=== PATIENT | female | born 2000 | race American Indian/Alaskan Native ===

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

== ENCOUNTER 2021-06-02 18:13 | Emergency (ER) | payer MEDICAID ==
[2021-06-02] MEDS ORDERED: predniSONE 20 MG TAB PO ONE (20:02)
[2021-06-02] MEDS ORDERED: KETOROLAC 60 MG/2 ML INJ IM ONE (20:02)
[2021-06-02 20:13] VITALS: BP 122/74
[2021-06-02 20:27] LABS: Bilirubin,Urine NEG (Negative); Blood,Urine NEG (Negative); Color,Urine Yellow (Yellow); Mucus,Urine FEW /HPF; Protein,Urine <15 mg/dL mg/dL (Negative); RBC,Urine < 1.0 /HPF (0.0-6.0); Urobilinogen,Urine < 2.0 mg/dL (<2.0); WBC,Urine < 1.0 /HPF (0.0-6.0)
[2021-06-02 20:27] LABS: Basophils % (Auto) 0.3 % (0.0-1.8); Eosinophils # (Auto) 0.1 K/mm3 (0.0-0.4); Eosinophils % (Auto) 1.4 % (0.0-4.3); Hematocrit 40.4 % (30.3-42.9); Hemoglobin 13.5 gm/dl (10.1-14.3); Lymphocytes # (Auto) 1.7 K/mm3 (1.2-5.4); Lymphocytes % (Auto) 27.2 % (13.4-35.0); Mean Corpuscular HGB Conc 34 % (30-34); Mean Corpuscular Volume 89 fl (79-97); Monocytes # (Auto) 0.5 K/mm3 (0.0-0.8); Monocytes % (Auto) 7.7 % (0.0-7.3); Platelet Count 403 K/mm3 (140-440); Red Blood Count 4.55 M/mm3 (3.65-5.03); Red Cell Distribution Width 13.3 % (13.2-15.2)
[2021-06-02 20:33] LABS: HCG Qualitative,Urine Negative (Negative)
[2021-06-02 20:51] LABS: Alanine Aminotransferase 18 units/L (7-56); Albumin 4.4 g/dL (3.9-5); Blood Urea Nitrogen 6 mg/dL (7-17); Calcium 9.5 mg/dL (8.4-10.2); Hemolysis Index 3
[2021-06-02 21:02] LABS: BUN/Creatinine Ratio 12
--- NOTE | 2021-06-02 21:21 | Emergency Department Report ---
ED Back Pain/Injury HPI - General Chief Complaint: Back Pain/Injury Stated Complaint: LOWER BACK PAIN Time Seen by Provider: 06/02/21 20:01 Source: patient Limitations: No Limitations - History of Present Illness Initial Comments: This is a 20-year-old female nontoxic, well nourished in appearance, no acute signs of distress presents to the ED with c/o of acute on chronic lower back pain. Patient stated today she also had 2 episodes of vomiting due to pain. Currently patient denies any vomiting. Patient stated that the past several days she was heavy lifting and developed pain. Patient denies any radiation of pain. Patient denies any trauma or injuries. Denies any bladder or bowel instability. Patient denies any urinary symptoms. Denies any fever, chills, nausea, vomiting, headache, stiff neck, chest pain or shortness of breath. Patient denies any numbness or tingling. Patient stated allergies to risperidone. MD Complaint: back pain -: days(s) Similar Symptoms Previously: Yes Place: home Radiation: none Severity: mild Severity scale (0 -10): 3 Quality: aching Consistency: intermittent Improves With: immobilization, sitting upright Worsens With: movement, walking Context: while lifting, turning/twisting Associated Symptoms: denies other symptoms, nausea/vomiting. denies: confusion, weakness, chest pain, numbness, difficulty walking, cough, difficulty urinating, diaphoresis, incontinence, fever/chills, constipation, headaches, abdominal pain, malaise, rash, seizure, shortness of breath, syncope - Related Data Previous Rx's Medication Instructions Recorded Last Taken Type DOXYCYCLINE Hyclate [Vibramycin 100 mg PO Q12HR #14 capsule 01/20/17 Unknown Rx CAP] Cyclobenzaprine [Flexeril] 10 mg PO QHS PRN #10 tablet 06/02/21 Unknown Rx Naproxen 500 mg PO Q12H PRN #12 tablet 06/02/21 Unknown Rx Allergies Allergy/AdvReac Type Severity Reaction Status Date / Time risperidone [From Risperdal] Allergy Unknown Verified 08/15/19 07:37 ED Review of Systems ROS: Stated complaint: LOWER BACK PAIN Other details as noted in HPI Comment: All other systems reviewed and negative Constitutional: denies: chills, fever Eyes: denies: eye pain, eye discharge, vision change ENT: denies: ear pain, throat pain Respiratory: denies: cough, shortness of breath, wheezing Cardiovascular: denies: chest pain, palpitations Endocrine: no symptoms reported Gastrointestinal: nausea, vomiting. denies: abdominal pain, diarrhea, constipation, hematemesis, melena, hematochezia Genitourinary: denies: urgency, dysuria, discharge Musculoskeletal: back pain. denies: joint swelling, arthralgia Skin: denies: rash, lesions Neurological: denies: headache, weakness, paresthesias Psychiatric: denies: anxiety, depression Hematological/Lymphatic: denies: easy bleeding, easy bruising ED Past Medical Hx - Past Medical History Hx Psychiatric Treatment: Yes Hx Asthma: Yes Additional medical history: Bipolar, ADD, PTSD - Surgical History Past Surgical History?: No - Social History Smoking Status: Never Smoker Substance Use Type: None - Medications Home Medications: Home Medications Medication Instructions Recorded Confirmed Last Taken Type DOXYCYCLINE Hyclate [Vibramycin 100 mg PO Q12HR #14 capsule 01/20/17 Unknown Rx CAP] Cyclobenzaprine [Flexeril] 10 mg PO QHS PRN #10 tablet 06/02/21 Unknown Rx Naproxen 500 mg PO Q12H PRN #12 tablet 06/02/21 Unknown Rx ED Physical Exam - General Limitations: No Limitations General appearance: alert, in no apparent distress - Head Head exam: Present: atraumatic, normocephalic - Eye Eye exam: Present: normal appearance - ENT ENT exam: Present: normal exam, normal orophraynx - Neck Neck exam: Present: normal inspection, full ROM. Absent: lymphadenopathy - Respiratory Respiratory exam: Present: normal lung sounds bilaterally. Absent: respiratory distress, wheezes, rales, rhonchi, stridor, chest wall tenderness, accessory muscle use, decreased breath sounds, prolonged expiratory - Cardiovascular Cardiovascular Exam: Present: regular rate, normal rhythm, normal heart sounds. Absent: bradycardia, tachycardia, irregular rhythm, systolic murmur, diastolic murmur, rubs, gallop - GI/Abdominal GI/Abdominal exam: Present: soft, normal bowel sounds. Absent: distended, tenderness, guarding, rebound, rigid, diminished bowel sounds - Extremities Exam Extremities exam: Present: normal inspection, full ROM, normal capillary refill. Absent: tenderness - Back Exam Back exam: Present: normal inspection, full ROM, paraspinal tenderness (Lumbar paraspinal). Absent: tenderness, CVA tenderness (R), CVA tenderness (L), muscle spasm, vertebral tenderness, rash noted - Expanded Back Exam Expanded Back exam: Absent: saddle anesthesia Back exam: Negative Straight Leg Raising: Left, Right - Neurological Exam Neurological exam: Present: alert, oriented X3, normal gait - Psychiatric Psychiatric exam: Present: normal affect, normal mood - Skin Skin exam: Present: warm, dry, intact, normal color. Absent: rash ED Course Vital Signs 06/02/21 06/02/21 20:12 21:36 Temperature 98.6 F Pulse Rate 78 Respiratory 16 Rate Blood Pressure 122/74 [Left] O2 Sat by Pulse 100 Oximetry - Reevaluation(s) Reevaluation #1: 06/02/21 21:20 Patient is speaking in full sentences with no signs of distress noted. ED Medical Decision Making - Lab Data Result diagrams: 06/02/21 20:11 06/02/21 20:11 Lab Results 06/02/21 06/02/21 06/02/21 Range/Units 20:07 20:11 20:11 WBC 6.3 (4.5-11.0) K/mm3 RBC 4.55 (3.65-5.03) M/mm3 Hgb 13.5 (10.1-14.3) gm/dl Hct 40.4 (30.3-42.9) % MCV 89 (79-97) fl MCH 30 (28-32) pg MCHC 34 (30-34) % RDW 13.3 (13.2-15.2) % Plt Count 403 (140-440) K/mm3 Lymph % (Auto) 27.2 (13.4-35.0) % [place] % (Auto) 7.7 H (0.0-7.3) % Eos % (Auto) 1.4 (0.0-4.3) % Baso % (Auto) 0.3 (0.0-1.8) % Lymph # (Auto) 1.7 (1.2-5.4) K/mm3 [place] # (Auto) 0.5 (0.0-0.8) K/mm3 Eos # (Auto) 0.1 (0.0-0.4) K/mm3 Baso # (Auto) 0.0 (0.0-0.1) K/mm3 Seg Neutrophils % 63.4 (40.0-70.0) % Seg Neutrophils # 4.0 (1.8-7.7) K/mm3 Sodium 140 (137-145) mmol/L Potassium 4.0 (3.6-5.0) mmol/L Chloride 105.5 (98-107) mmol/L Carbon Dioxide 23 (22-30) mmol/L Anion Gap 16 mmol/L BUN 6 L (7-17) mg/dL Creatinine 0.5 L (0.6-1.2) mg/dL Estimated GFR > 60 ml/min BUN/Creatinine Ratio 12 % Glucose 84 (65-100) mg/dL Calcium 9.5 (8.4-10.2) mg/dL Total Bilirubin 0.40 (0.1-1.2) mg/dL AST 17 (5-40) units/L ALT 18 (7-56) units/L Alkaline Phosphatase 68 (35-129) units/L Total Protein 7.7 (6.3-8.2) g/dL Albumin 4.4 (3.9-5) g/dL Albumin/Globulin Ratio 1.3 % Lipase 30 (13-60) units/L Urine Color Yellow (Yellow) Urine Turbidity Clear (Clear) Urine pH 6.0 (5.0-7.0) Ur Specific [place] 1.017 (1.003-1.030) Urine Protein <15 mg/dl (Negative) mg/dL Urine Glucose (UA) Neg (Negative) mg/dL Urine Ketones Neg (Negative) mg/dL Urine Blood Neg (Negative) Urine Nitrite Neg (Negative) Urine Bilirubin Neg (Negative) Urine Urobilinogen < 2.0 (<2.0) mg/dL Ur Leukocyte Esterase Neg (Negative) Urine WBC (Auto) < 1.0 (0.0-6.0) /HPF Urine RBC (Auto) < 1.0 (0.0-6.0) /HPF U Epithel Cells (Auto) 2.0 (0-13.0) /HPF Urine Mucus Few /HPF Urine HCG, Qual Negative (Negative) - Medical Decision Making This is a 20-year-old female that presents with low back strain. Patient is stable was examined by me. There is no spinal tenderness. There is no cauda equina syndrome during examination. No bladder or bowel instability. Patient received Toradol 60 mg IM and prednisone in the ED by Lucio Waggoner RN which stated that her symptoms has resolved and subsided. Patient is discharged with muscle relaxant and naproxen. Patient was instructed not to operate any machinery while taking muscle relaxant as they cause her drowsiness. Patient was referred to Follow-up with a primary care doctor in 3-5 days or if symptoms worsen and continue return to emergency room as soon as possible. At time of discharge, the patient does not seem toxic or ill in appearance. No acute signs of distress noted. Patient agrees to discharge treatment plan of care. No further questions noted by the patient. This chart is dictated with using [employer] Critical care attestation.: If time is entered above; I have spent that time in minutes in the direct care of this critically ill patient, excluding procedure time. ED Disposition Clinical Impression: Low back strain Qualifiers: Encounter type: initial encounter Qualified Code(s): S39.012A - Strain of muscle, fascia and tendon of lower back, initial encounter Disposition: TO HOME OR SELFCARE Is pt being admited?: No Does the pt Need Aspirin: No Condition: Stable Instructions: Cyclobenzaprine tablets, Lumbosacral Strain Additional Instructions: Follow-up with your primary care doctor in 3-5 days or if symptoms worsen such as bladder or bowel stability, chest pain, short of breath, numbness or tingling sensation in extremities, headache, dizziness, visual changes, nausea vomiting, or abdominal pain, return back to emergency room as was possible. Take naproxen and Flexeril as prescribed. Do not operate heavy machinery while taking Flexeril due to sedation Prescriptions: Cyclobenzaprine [Flexeril] 10 mg PO QHS PRN #10 tablet PRN Reason: Muscle Spasm Naproxen 500 mg PO Q12H PRN #12 tablet PRN Reason: Pain , Severe (7-10) Referrals: PRIMARY CAREMD [Referring] - 3-5 Days MIKI MITCHELL MD [Staff Physician] - 3-5 Days Time of Disposition: 21:23
== END 2021-06-02 21:30 | disposition home or self-care (01) ==
LOC: ED 18:13
DX: S39.012A Strain of muscle, fascia and tendon of lower back, initial encounter (principal); F31.9 Bipolar disorder, unspecified; J45.909 Unspecified asthma, uncomplicated; Z79.899 Other long term (current) drug therapy; Z88.8 Allergy status to other drugs, medicaments and biological substances; X50.0XXA Overexertion from strenuous movement or load, initial encounter; Y93.89 Activity, other specified; Y92.099 Unspecified place in other non-institutional residence as the place of occurrence of the external cause; Y99.8 Other external cause status
CPT/HCPCS: 36415; 80053; 81001; 81025; 83690; 85025; 99283; J1885; J7512

== ENCOUNTER 2022-03-23 20:48 | Emergency (ER) | payer MEDICAID ==
[2022-03-23 22:31] VITALS: BP 141/84
[2022-03-24] MEDS ORDERED: IBUPROFEN 600 MG TAB PO ONE ×2 (03:55→06:40)
[2022-03-24] MEDS ORDERED: HYDROcodone/ACETAMINOPHEN 7.5-325MG TAB PO ONE ×2 (03:55→06:40)
[2022-03-24] MEDS ORDERED: ONDANSETRON 4 MG ODT TAB PO ONE ×2 (03:55→06:40)
--- NOTE | 2022-03-24 04:24 | XRay Report ---
LEFT KNEE 4 VIEW(S) INDICATION / CLINICAL INFORMATION: PAIN COMPARISON: None available. FINDINGS: BONES / JOINT(S): No acute fracture or subluxation. No significant arthritis. Moderate joint effusion . SOFT TISSUES: No significant abnormality. ADDITIONAL FINDINGS: None. Signer Name: Bernabe Boss DO Signed: 03/24/2022 4:20 AM Workstation Name: [id number]
--- NOTE | 2022-03-24 04:56 | Emergency Department Report ---
ED Extremity Problem HPI - General Chief complaint: Extremity Injury, Lower Stated complaint: RIGHT KNEE PAIN Source: patient Mode of arrival: Ambulatory Limitations: No Limitations - History of Present Illness Initial comments: Patient is a 21-year-old -[place] female with no past medical history presents to the ED with complaint of acute onset persistent left knee pain and swelling for the last 3 months after a fall injury. Patient states that she was horse playing with her when she twisted her left knee and fell down and afterwards she was initially evaluated at [facility] ER where she was evaluated and discharged home with follow-up to orthopedic surgeon which she never followed up with. Patient states that she was told during visit at [facility] that she had a torn ligament in the knee. Patient states that she did not go for surgery because she was scared of surgery and has been taking lxpe-kot-[id number] medication with no relief. Patient denies fall, nausea and vomiting, numbness and tingling or weakness of lower extremities bilaterally. MD Complaint: extremity pain (left knee pain), extremity swelling (left knee pain), joint swelling (Left knee pain and swelling), joint paint (Left knee is pain and) -: Sudden, month(s) (2) Location: left, lower extremity (Left knee pain and swelling), knee History of Same: Yes (Recent fall 2 months ago) -: Yes arthralgia (Left knee joint pain) Quality: sharp, constant Consistency: constant Improves with: nothing Worsens with: weight bearing, walking, exertion, palpation Associated Symptoms: denies other symptoms, arthralgias (Left knee pain and swelling). denies: chest pain, shortness of breath, fever, myalgias - Related Data Previous Rx's Medication Instructions Recorded Last Taken Type DOXYCYCLINE Hyclate [Vibramycin 100 mg PO Q12HR #14 capsule 01/20/17 Unknown Rx CAP] Cyclobenzaprine [Flexeril] 10 mg PO QHS PRN #10 tablet 06/02/21 Unknown Rx Naproxen 500 mg PO Q12H PRN #12 tablet 06/02/21 Unknown Rx Ibuprofen [Motrin] 800 mg PO Q8HR PRN #30 tablet 03/24/22 Unknown Rx Leg Brace [Knee Brace] 1 each MC ONCE #1 each 03/24/22 Unknown Rx predniSONE [Deltasone] 60 mg PO QDAY #15 tab 03/24/22 Unknown Rx Allergies Allergy/AdvReac Type Severity Reaction Status Date / Time risperidone [From Risperdal] Allergy Unknown Verified 08/15/19 07:37 ED Review of Systems ROS: Stated complaint: RIGHT KNEE PAIN Other details as noted in HPI Constitutional: denies: chills, fever Eyes: denies: eye pain, eye discharge, vision change ENT: denies: ear pain, throat pain Respiratory: denies: cough, shortness of breath, wheezing Cardiovascular: denies: chest pain, palpitations Endocrine: no symptoms reported Gastrointestinal: denies: abdominal pain, nausea, diarrhea Genitourinary: denies: urgency, dysuria, discharge Musculoskeletal: joint swelling, arthralgia (Left knee pain and swelling). denies: back pain Skin: denies: rash, lesions Neurological: denies: headache, weakness, paresthesias Psychiatric: denies: anxiety, depression Hematological/Lymphatic: denies: easy bleeding, easy bruising ED Past Medical Hx - Past Medical History Previous Medical History?: Yes Hx Psychiatric Treatment: Yes (ADHD, PTSD, bipolar disorder) Hx Asthma: Yes Additional medical history: Bipolar, ADD, PTSD. Chronic Right Knee pain - Surgical History Past Surgical History?: No - Social History Smoking Status: Current Every Day Smoker Substance Use Type: None - Medications Home Medications: Home Medications Medication Instructions Recorded Confirmed Last Taken Type DOXYCYCLINE Hyclate [Vibramycin 100 mg PO Q12HR #14 capsule 01/20/17 Unknown Rx CAP] Cyclobenzaprine [Flexeril] 10 mg PO QHS PRN #10 tablet 06/02/21 Unknown Rx Naproxen 500 mg PO Q12H PRN #12 tablet 06/02/21 Unknown Rx Ibuprofen [Motrin] 800 mg PO Q8HR PRN #30 tablet 03/24/22 Unknown Rx Leg Brace [Knee Brace] 1 each MC ONCE #1 each 03/24/22 Unknown Rx predniSONE [Deltasone] 60 mg PO QDAY #15 tab 03/24/22 Unknown Rx ED Physical Exam - General Limitations: No Limitations General appearance: alert, in no apparent distress - Head Head exam: Present: atraumatic, normocephalic, normal inspection - Eye Eye exam: Present: normal appearance, PERRL, EOMI Pupils: Present: normal accommodation - ENT ENT exam: Present: normal exam, normal orophraynx, mucous membranes moist, TM's normal bilaterally, normal external ear exam - Neck Neck exam: Present: normal inspection, full ROM. Absent: tenderness, mening ismus, lymphadenopathy - Respiratory Respiratory exam: Present: normal lung sounds bilaterally. Absent: respiratory distress, wheezes, rales, stridor, chest wall tenderness, accessory muscle use, decreased breath sounds, prolonged expiratory - Cardiovascular Cardiovascular Exam: Present: regular rate, normal rhythm, normal heart sounds. Absent: systolic murmur, diastolic murmur, rubs, gallop - GI/Abdominal GI/Abdominal exam: Present: soft, normal bowel sounds. Absent: tenderness, guarding, rebound, hyperactive bowel sounds, hypoactive bowel sounds - Extremities Exam Extremities exam: Present: normal inspection, tenderness (Palpable left knee tenderness with mild swelling and limited range of motion due to pain), normal capillary refill, joint swelling (Left knee pain and swelling). Absent: full ROM (Limited range of motion of left knee due to pain), calf tenderness - Back Exam Back exam: Present: normal inspection, full ROM. Absent: tenderness, CVA tenderness (R), CVA tenderness (L), muscle spasm, paraspinal tenderness, vertebral tenderness - Neurological Exam Neurological exam: Present: alert, oriented X3, CN II-XII intact, normal gait, reflexes normal - Psychiatric Psychiatric exam: Present: normal affect, normal mood - Skin Skin exam: Present: warm, dry, intact, normal color. Absent: rash ED Course Vital Signs 03/23/22 21:06 Temperature 98.5 F Pulse Rate 88 Respiratory 18 Rate Blood Pressure 141/84 O2 Sat by Pulse 100 Oximetry ED Medical Decision Making - Radiology Data Radiology results: report reviewed, image reviewed [facility] [address] [place] [address] XRay Report Signed Patient: ALEXANDRE POWER MR#: [id number] : 2000 Acct:[id number] Age/Sex: 21 / F A DM Date: 03/23/22 Loc: ED Attending Dr: Ordering Physician: RALPH JORDAN Date of Service: 03/24/22 Procedure(s): XR knee 3V LT Accession Number(s): [id number] cc: RALPH JORDAN Fluoro Time In Minutes: LEFT KNEE 4 VIEW(S) INDICATION / CLINICAL INFORMATION: PAIN COMPARISON: None available. FINDINGS: BONES / JOINT(S): No acute fracture or subluxation. No significant arthritis. Moderate joint effusion. SOFT TISSUES: No significant abnormality. ADDITIONAL FINDINGS: None. Signer Name: Bernabe Carter DO Signed: 03/24/2022 4:20 AM Workstation Name: [id number] Transcribed By: MERISSA Dictated By: BERNABE CARTER DO Electronically Authenticated By: BERNABE CARTER DO Signed Date/Time: 03/24/22419 DD/ 8 TD/TT: - Medical Decision Making This is a 21-year-old -[place] female with no past medical history presents to the ED with complaint of acute onset persistent left knee pain and swelling for the last 3 months after a fall injury. Patient states that she was horse playing with her when she twisted her left knee and fell down and afterwards she was initially evaluated at [facility] ER where she was evaluated and discharged home with follow-up to orthopedic surgeon which she never followed up with. Patient states that she was told during visit at [facility] that she had a torn ligament in the knee. Patient states that she did not go for surgery because she was scared of surgery and has been taking [id number] medication with no relief. In the ED, patient is alert and oriented x3 and is not in any distress. Patient was treated for pain in the ED. Left knee x-ray showed no acute fractures or subluxations. Left knee was splinted with left knee immobilizer and patient fitted with crutches. Patient will discharge home on pain medications and given referral to the orthopedic surgeon Dr. Vazquez for further evaluation. Patient was advised to call Dr. Vazquez's office first thing in the morning on Tuesday, February 22, 2022 to schedule a follow-up appointment. Patient was advised return to the ED immediately if symptoms get worse. - Differential Diagnosis Chronic left knee pain; chronic ligament injury; chronic pain syndrome Critical care attestation.: If time is entered above; I have spent that time in minutes in the direct care of this critically ill patient, excluding procedure time. ED Disposition Clinical Impression: Left anterior knee pain, Chronic pain of left knee Disposition: HOME / SELF CARE / HOMELESS Is pt being admited?: No Does the pt Need Aspirin: No Condition: Stable Instructions: Joint Pain, Hggc-[id number], Chronic Knee Pain, Adult, [id number] Additional Instructions: Left knee x-ray showed no acute fractures or subluxation. Therefore take medication with food, drink plenty of fluids and follow-up with your primary care physician in 7 to 10 days for reevaluation. Consider following up with the orthopedic surgeon Dr. Vazquez in 5 to 7 days for reevaluation. Return to the ED immediately if symptoms get worse. Prescriptions: predniSONE [Deltasone] 60 mg PO QDAY #15 tab Leg Brace [Knee Brace] 1 each MC ONCE #1 each Ibuprofen [Motrin] 800 mg PO Q8HR PRN #30 tablet PRN Reason: Pain , Severe (7-10) Referrals: MIKI MITCHELL MD [Primary Care Provider] - 3-5 Days ALESSANDRA VAZQUEZ MD [Staff Physician] - 3-5 Days Forms: Work/School Release Form(ED) Time of Disposition: 04:58 Print Language: LITHUANIAN
== END 2022-03-24 08:56 | disposition home or self-care (01) ==
LOC: ED 20:48
DX: M25.562 Pain in left knee (principal); G89.29 Other chronic pain; J45.909 Unspecified asthma, uncomplicated; F17.200 Nicotine dependence, unspecified, uncomplicated; F31.9 Bipolar disorder, unspecified; Z88.8 Allergy status to other drugs, medicaments and biological substances; Z79.899 Other long term (current) drug therapy
CPT/HCPCS: 99283; J3490; Q0162

== ENCOUNTER 2022-04-13 16:33 | Emergency (ER) | payer MEDICAID ==
[2022-04-13 18:08] LABS: Basophils % (Auto) 0.4 % (0.0-1.8); Eosinophils # (Auto) 0.1 K/mm3 (0.0-0.4); Eosinophils % (Auto) 1.2 % (0.0-4.3); Hematocrit 36.7 % (30.3-42.9); Hemoglobin 12.5 gm/dl (10.1-14.3); Lymphocytes # (Auto) 2.2 K/mm3 (1.2-5.4); Lymphocytes % (Auto) 39.6 % (13.4-35.0); Mean Corpuscular HGB Conc 34 % (30-34); Mean Corpuscular Volume 90 fl (79-97); Monocytes # (Auto) 0.4 K/mm3 (0.0-0.8); Monocytes % (Auto) 6.6 % (0.0-7.3); Platelet Count 341 K/mm3 (140-440); Red Blood Count 4.09 M/mm3 (3.65-5.03); Red Cell Distribution Width 13.2 % (13.2-15.2)
[2022-04-13 18:31] LABS: Alanine Aminotransferase 13 units/L (7-56); Albumin 4.1 g/dL (3.9-5); BUN/Creatinine Ratio 12; Blood Urea Nitrogen 6 mg/dL (7-17); Calcium 9.5 mg/dL (8.4-10.2); Hemolysis Index 7
[2022-04-14] MEDS ORDERED: ONDANSETRON 4 MG ODT TAB PO ONE (06:27)
[2022-04-14] MEDS ORDERED: ACETAMINOPHEN 325 MG TAB PO ONE (06:27)
--- NOTE | 2022-04-14 06:32 | Emergency Department Report ---
ED General Adult HPI - General Chief complaint: Abdominal Pain Stated complaint: 6WKS /ABD CRAMPS PUI?: No Time Seen by Provider: 04/14/22 06:03 Source: patient, RN notes reviewed, old records reviewed Mode of arrival: Ambulatory Limitations: No Limitations - History of Present Illness Initial comments: The patient was evaluated in the emergency department for symptoms described in the history of present illness. He/she was evaluated in the context of the global COVID-19 pandemic, which necessitated consideration that the patient might be at risk for infection with the virus that causes COVID-19. Institutional protocols and algorithms that pertain to the evaluation of patients at risk for COVID-19 are in a state of rapid change based on information released by regulatory bodies including the CDC and federal and state organizations. These policies and algorithms were followed during the patient's care in the emergency department. Please note that these policies, procedures and recommendations changed on a rapid basis. The patient is a 21-year-old female, who is 1, para 0, last menstrual period late February, she thinks March 13 or , presenting to the ER today with persistent lower abdominal cramping since Thursday. Is currently Thursday. Patient reports that she was seen at [facility] recently, this past Thursday, 3 days ago, and was found to be . She reports that she had a urinalysis which was negative for infectious pathology. She reports that she had an ultrasound, but she does not recall the results of the ultrasound. Positive nausea. No complaint of headache, neck pain, chest pain, upper abdominal pain, vomiting, diarrhea, vaginal bleeding or dysuria. She is scheduled to follow-up with an outpatient SURVEILLANCE OPERATOR doctor later on this week. This will be her first visit. -: Gradual, days(s) Location: abdomen Quality: other (Cramping) Consistency: intermittent Improves with: none Worsens with: none Associated Symptoms: denies other symptoms, nausea/vomiting - Related Data Previous Rx's Medication Instructions Recorded Last Taken Type Leg Brace [Knee Brace] 1 each MC ONCE #1 each 03/24/22 Unknown Rx Acetaminophen [Non-Aspirin Extra 500 mg PO Q6HR PRN #30 tablet 04/14/22 Unknown Rx Strength] Doxylamine Succinate/Vit B6 1 each PO QHS PRN #30 tablet. 04/14/22 Unknown Rx [Rita Adamson 10-10 mg Tablet] Jane Root [Jane] 250 mg PO QID PRN #30 capsule 04/14/22 Unknown Rx Vit-Fe Fumar-FA [ 1 tab PO QDAY #30 tablet 04/14/22 Unknown Rx Vitamin] Allergies Allergy/AdvReac Type Severity Reaction Status Date / Time risperidone [From Risperdal] Allergy Unknown Verified 08/15/19 07:37 ED Review of Systems ROS: Stated complaint: 6WKS /ABD CRAMPS Other details as noted in HPI Comment: All other systems reviewed and negative Gastrointestinal: abdominal pain, nausea Genitourinary: denies: dysuria ED Past Medical Hx - Past Medical History Hx Psychiatric Treatment: Yes (ADHD, PTSD, bipolar disorder) Hx Asthma: Yes Additional medical history: Bipolar, ADD, PTSD. Chronic Right Knee pain - Social History Smoking Status: Current Every Day Smoker Substance Use Type: None - Medications Home Medications: Home Medications Medication Instructions Recorded Confirmed Last Taken Type Leg Brace [Knee Brace] 1 each MC ONCE #1 each 03/24/22 Unknown Rx Acetaminophen [Non-Aspirin Extra 500 mg PO Q6HR PRN #30 tablet 04/14/22 Unknown Rx Strength] Doxylamine Succinate/Vit B6 1 each PO QHS PRN #30 tablet. 04/14/22 Unknown Rx [Rita Adamson 10-10 mg Tablet] Jane Root [Jane] 250 mg PO QID PRN #30 capsule 04/14/22 Unknown Rx Vit-Fe Fumar-FA [ 1 tab PO QDAY #30 tablet 04/14/22 Unknown Rx Vitamin] ED Physical Exam - General Limitations: No Limitations General appearance: alert, in no apparent distress - Head Head exam: Present: atraumatic, normocephalic - Eye Eye exam: Present: normal appearance, EOMI. Absent: nystagmus - ENT ENT exam: Present: normal exam, normal orophraynx, mucous membranes moist, normal external ear exam - Neck Neck exam: Present: normal inspection, full ROM. Absent: tenderness, meni ngismus - Respiratory Respiratory exam: Present: normal lung sounds bilaterally. Absent: respiratory distress, wheezes, rales, rhonchi, stridor, decreased breath sounds - Cardiovascular Cardiovascular Exam: Present: regular rate, normal rhythm, normal heart sounds. Absent: bradycardia, tachycardia, irregular rhythm, systolic murmur, diastolic murmur, rubs, gallop - GI/Abdominal GI/Abdominal exam: Present: soft. Absent: distended, tenderness, guarding, rebound, rigid, pulsatile mass - Extremities Exam Extremities exam: Present: normal inspection, full ROM, other (2+ pulses noted in the bilateral upper and lower extremities. There is no palpable cord. negative Homans sign. Muscular compartments are soft. The pelvis is stable.). Absent: pedal edema, calf tenderness - Back Exam Back exam: Present: normal inspection, full ROM. Absent: tenderness, CVA tenderness (R), CVA tenderness (L), paraspinal tenderness, vertebral tenderness - Neurological Exam Neurological exam: Present: alert, oriented X3, normal gait, other (No facial droop. Tongue midline. Extraocular movements intact bilaterally. Facial sensation intact to light touch in V1, V2, V3 distribution bilaterally. 5 and a 5 strength in 4 extremities. Sensation intact to light touch in 4 extremities.). Absent: motor sensory deficit - Psychiatric Psychiatric exam: Present: normal affect, normal mood - Skin Skin exam: Present: warm, dry, intact, normal color. Absent: rash ED Course Vital Signs 04/13/22 04/14/22 04/14/22 16:41 06:35 06:42 Temperature 99.4 F Pulse Rate 100 H 70 Respiratory 15 18 Rate Blood Pressure 154/88 117/74 [Left] O2 Sat by Pulse 99 100 100 Oximetry O2 Sat by Pulse Oximetry [ Digit-Finger] 04/14/22 08:00 Temperature Pulse Rate Respiratory Rate Blood Pressure [Left] O2 Sat by Pulse Oximetry O2 Sat by Pulse 99 Oximetry [ Digit-Finger] - Reevaluation(s) Reevaluation #1: 04/14/22 06:31 Differential diagnosis, including but not limited to: Cystitis, intrauterine , ectopic , ovarian cyst,, constipation, functional abdominal pain Assessment and plan: 21-year-old female, who is afebrile, with reassuring vital signs, heart rate 82 bpm, with complaint of abdominal cramping while . Abdomen soft and benign, without rebound, guarding or peritoneal signs. Patient reports having had an ultrasound 3 days ago, but does not recall the result. Patient also reports having provided a urine sample a few days ago, and believes it was negative for bacteria/infection. We will treat the patient's symptoms, repeat pelvic ultrasound, repeat clean- catch urinalysis, and reassess. I discussed this plan of care with the patient. She articulated understanding. All questions answered. 04/14/22 08:31 Laboratory studies are unremarkable. Urinalysis without bacteriuria. Ultrasound suggests intrauterine . Patient may be discharged to follow-up with an outpatient SURVEILLANCE OPERATOR doctor at this time. No active vomiting. Appears comfortable. Return precautions are reviewed. All questions answered. - Pulse Oximetry Interpretation Digit-Finger Initial Pulse Oximetry Readin O2 Sat by Pulse Oximetry: 99 Actions Taken: none ED Medical Decision Making - Lab Data Result diagrams: 04/13/22 17:50 04/13/22 17:50 Vital Signs 04/13/22 16:41 Temperature 99.4 F Pulse Rate 100 H Respiratory 15 Rate Blood Pressure 154/88 [Left] O2 Sat by Pulse 99 Oximetry Lab Results 04/13/22 04/13/22 04/13/22 Range/Units 17:50 17:50 17:50 WBC 5.6 (4.5-11.0) K/mm3 RBC 4.09 (3.65-5.03) M/mm3 Hgb 12.5 (10.1-14.3) gm/dl Hct 36.7 (30.3-42.9) % MCV 90 (79-97) fl MCH 31 (28-32) pg MCHC 34 (30-34) % RDW 13.2 (13.2-15.2) % Plt Count 341 (140-440) K/mm3 Lymph % (Auto) 39.6 H (13.4-35.0) % [place] % (Auto) 6.6 (0.0-7.3) % Eos % (Auto) 1.2 (0.0-4.3) % Baso % (Auto) 0.4 (0.0-1.8) % Lymph # (Auto) 2.2 (1.2-5.4) K/mm3 [place] # (Auto) 0.4 (0.0-0.8) K/mm3 Eos # (Auto) 0.1 (0.0-0.4) K/mm3 Baso # (Auto) 0.0 (0.0-0.1) K/mm3 Seg Neutrophils % 52.2 (40.0-70.0) % Seg Neutrophils # 2.9 (1.8-7.7) K/mm3 Sodium 139 (137-145) mmol/L Potassium 4.0 (3.6-5.0) mmol/L Chloride 105.0 (98-107) mmol/L Carbon Dioxide 22 (22-30) mmol/L Anion Gap 16 mmol/L BUN 6 L (7-17) mg/dL Creatinine 0.5 L (0.6-1.2) mg/dL Estimated GFR > 60 ml/min BUN/Creatinine Ratio 12 % Glucose 94 (65-100) mg/dL Calcium 9.5 (8.4-10.2) mg/dL Total Bilirubin 0.20 (0.1-1.2) mg/dL AST 16 (5-40) units/L ALT 13 (7-56) units/L Alkaline Phosphatase 56 (35-129) units/L Total Protein 6.7 (6.3-8.2) g/dL Albumin 4.1 (3.9-5) g/dL Albumin/Globulin Ratio 1.6 % HCG, Qual Positive (Negative) - Radiology Data Radiology results: report reviewed, image reviewed ULTRASOUND OBSTETRIC REASON FOR EXAM: Lower abdominal cramping and TECHNIQUE: Transabdominal and transvaginal ultrasound was performed to evaluate a first trimester . COMPARISON: None available. FINDINGS: Uterus measures 8.2 x 4.7 x 6.6 cm. The endometrial stripe measures 17 mm. There is a tiny cystic structure with decidual reaction in the endometrium. This likely reflects an intrauterine gestational sac. Mean sac diameter measures 2.5 mm, corresponding to a gestational age of 5 weeks and 0 days. No yolk sac or pole is identified at this time. Adnexa are unremarkable. No free fluid. IMPRESSION: Early intrauterine gestational sac without yolk sac or pole identified at this time. Recommend continued follow-up with beta hCG and pelvic sonography, as clinically indicated. Signer Name: José Miguel Calixto MD Signed: 04/14/2022 7:19 AM Workstation Name: [id number] Critical care attestation.: If time is entered above; I have spent that time in minutes in the direct care of this critically ill patient, excluding procedure time. ED Disposition Clinical Impression: Nonspecific abdominal pain Qualifiers: Weeks of gestation: less than 8 weeks Qualified Code(s): Z3A.01 - Less than 8 weeks gestation of Disposition: 01 HOME / SELF CARE / HOMELESS Is pt being admited?: No Does the pt Need Aspirin: No Condition: Good Instructions: Abdominal Pain (ED) Additional Instructions: Urine culture is sent today, and results will be available in the next 3 to 5 days. Please have your primary care doctor or SURVEILLANCE OPERATOR physician contact the medical records department to obtain culture results. Patient was found to have a positive blood test today, and ultrasound suggests a possible intrauterine . Recommend that patient follow-up in 48 hours / 2 days for repeat blood test and ultrasound. Patient's quantitative hCG, blood test level, is 410 today. The patient may return to this emergency room, or follow-up with any of the listed SURVEILLANCE OPERATOR physicians for repeat checkup and evaluation. Recommend that patient avoid heavy lifting, and sex. The patient may take Tylenol for pain, but she should not take Motrin, ibuprofen, Naprosyn, Aleve, a lcohol, tobacco or smoke products. For the patient's convenience, local SURVEILLANCE OPERATOR doctors have been listed that she may follow-up with. She may also elect to follow-up with her own SURVEILLANCE OPERATOR physician. Please return to the emergency room right away with new pain, worsened pain, migration of pain, projectile vomiting, change in mental status, confusion, inability tolerate liquid feeds, new, worsened or different symptoms not present on the initial emergency room evaluation Prescriptions: Doxylamine Succinate/Vit B6 [Rita Adamson 10-10 mg Tablet] 1 each PO QHS PRN #30 tablet. PRN Reason: Nausea Jane Root [Jane] 250 mg PO QID PRN #30 capsule PRN Reason: Nausea Acetaminophen [Non-Aspirin Extra Strength] 500 mg PO Q6HR PRN #30 tablet PRN Reason: Pain , Severe (7-10) Vit-Fe Fumar-FA [ Vitamin] 1 tab PO QDAY #30 tablet Referrals: [facility] [Provider Group] - 2-3 Days [facility] [Provider Group] - 2-3 Days [facility] [Provider Group] - 2-3 Days Forms: Work/School Release Form(ED)
[2022-04-14 07:14] LABS: Bilirubin,Urine NEG (Negative); Blood,Urine NEG (Negative); Color,Urine Yellow (Yellow); Hyaline Casts,Urine 1 /LPF; Mucus,Urine 1+ /HPF; Protein,Urine <15 mg/dL mg/dL (Negative); Urobilinogen,Urine < 2.0 mg/dL (<2.0)
--- NOTE | 2022-04-14 08:24 | Ultrasound Report ---
ULTRASOUND OBSTETRIC REASON FOR EXAM: Lower abdominal cramping and TECHNIQUE: Transabdominal and transvaginal ultrasound was performed to evaluate a first trimester pre gnancy. COMPARISON: None available. FINDINGS: Uterus measures 8.2 x 4.7 x 6.6 cm. The endometrial stripe measures 17 mm. There is a tiny cystic str ucture with decidual reaction in the endometrium. This likely reflects an intrauterine gestational sa c. Mean sac diameter measures 2.5 mm, corresponding to a gestational age of 5 weeks and 0 days. No yo lk sac or pole is identified at this time. Adnexa are unremarkable. No free fluid. IMPRESSION: Early intrauterine gestational sac without yolk sac or pole identified at this time. Recommend continued follow-up with beta hCG and pelvic sonography, as clinically indicated. Signer Name: José Miguel Calixto MD Signed: 04/14/2022 8:19 AM Workstation Name: [id number]
[2022-04-14 08:35] VITALS: BP 91/61
== END 2022-04-14 08:48 | disposition home or self-care (01) ==
LOC: ED 16:33
DX: O26.891 Other specified pregnancy related conditions, first trimester (principal); Z3A.01 Less than 8 weeks gestation of pregnancy; R10.30 Lower abdominal pain, unspecified; F90.9 Attention-deficit hyperactivity disorder, unspecified type; F43.10 Post-traumatic stress disorder, unspecified; F31.9 Bipolar disorder, unspecified; G89.29 Other chronic pain; M25.561 Pain in right knee; F17.290 Nicotine dependence, other tobacco product, uncomplicated; Z88.8 Allergy status to other drugs, medicaments and biological substances
CPT/HCPCS: 36415; 76801; 76817; 80053; 81001; 84702; 84703; 85025; 87086; 99284; J3490; Q0162

== ENCOUNTER 2022-04-26 09:31 | Emergency (ER) | payer MEDICAID ==
[2022-04-26 12:09] LABS: Bacteria,Urine 1+ /HPF (Negative); Bilirubin,Urine NEG (Negative); Blood,Urine NEG (Negative); Color,Urine Yellow (Yellow); Hyaline Casts,Urine 5 /LPF; Mucus,Urine 3+ /HPF; Urobilinogen,Urine < 2.0 mg/dL (<2.0)
[2022-04-26] MEDS ORDERED: FAMOTIDINE 20 MG/2 ML INJ IV ONE (12:49)
[2022-04-26] MEDS ORDERED: cefTRIAXone/NS 1 GM/50 ML 1 GM/50 ML BAG IV ONE (12:49)
[2022-04-26] MEDS ORDERED: SODIUM CHLORIDE 0.9% 1000 ML 1,000 ML IV ONE (12:49)
[2022-04-26] MEDS ORDERED: diphenhydrAMINE 50 MG/ML VIAL IV ONE (12:49)
[2022-04-26] MEDS ORDERED: METOCLOPRAMIDE 10 MG/2 ML INJ IV ONE (12:49)
[2022-04-26 13:33] LABS: Basophils % (Auto) 0.6 % (0.0-1.8); Eosinophils # (Auto) 0.1 K/mm3 (0.0-0.4); Hematocrit 36.3 % (30.3-42.9); Hemoglobin 12.3 gm/dl (10.1-14.3); Lymphocytes # (Auto) 2.2 K/mm3 (1.2-5.4); Mean Corpuscular HGB Conc 34 % (30-34); Mean Corpuscular Volume 90 fl (79-97); Monocytes # (Auto) 0.5 K/mm3 (0.0-0.8); Platelet Count 378 K/mm3 (140-440); Red Blood Count 4.05 M/mm3 (3.65-5.03); Red Cell Distribution Width 13.2 % (13.2-15.2)
[2022-04-26 13:43] LABS: Alanine Aminotransferase 14 units/L (7-56); Albumin 4.3 g/dL (3.9-5); Blood Urea Nitrogen 6 mg/dL (7-17); Calcium 9.3 mg/dL (8.4-10.2); Hemolysis Index 1
[2022-04-26 13:54] LABS: BUN/Creatinine Ratio 15
--- NOTE | 2022-04-26 16:37 | Emergency Department Report ---
ED N/V/D HPI - General Chief complaint: Abdominal Pain Stated complaint: ABD PAIN Source: EMS Mode of arrival: Ambulatory Limitations: No Limitations - History of Present Illness Initial comments: Patient is a A0 21-year-old -British female who is approximately 7 weeks gestation and who has past medical history of ADHD, PTSD, asthma and bipolar disorder who presents to the ED with complaint of acute onset persistent generalized weakness, low back pain, and persistent nausea for the last 1 week, worse in the last 3 days. Patient states that she has not been able to eat anything in the last 24 hours because of persistent nausea. Patient denies abdominal pain, vaginal bleeding, vaginal discharge, dysuria, urinary frequency and urgency, chest pain or shortness of breath, cough, nasal and sinus congestion or headache. MD complaint: nausea, other (Generalized weakness, low back pain, approximately 7 weeks gestation) -: Sudden, week(s) (1) Description of Vomiting: food contents, watery, bilious Associated Abdominal Pain: No Location: diffuse Radiation: none Severity: moderate Pain Scale: 3 Quality: dull Consistency: intermittent Improves with: none Worsens with: eating, vomiting Context: other (7-week cessation) Associated Symptoms: denies other symptoms, myalgias, loss of appetite, malaise, nausea/vomiting, weakness. denies: chest pain, cough, diaphoresis, fever/chills, headaches, rash, dysuria, shortness of breath, syncope - Related Data Previous Rx's Medication Instructions Recorded Last Taken Type Leg Brace [Knee Brace] 1 each MC ONCE #1 each 03/24/22 Unknown Rx Doxylamine Succinate/Vit B6 1 each PO QHS PRN #30 tablet. 04/14/22 Unknown Rx [Rita Adamson 10-10 mg Tablet] Jane Root [Jane] 250 mg PO QID PRN #30 capsule 04/14/22 Unknown Rx Acetaminophen [Non-Aspirin Extra 500 mg PO Q6HR PRN #30 tablet 04/26/22 Unknown Rx Strength] Vit-Fe Fumar-FA [ 1 tab PO QDAY #60 tablet 04/26/22 Unknown Rx Vitamin] Promethazine [Phenergan] 25 mg PO Q8HR PRN #30 tab 04/26/22 Unknown Rx cephALEXin [Keflex] 500 mg PO Q6HR #40 capsule 04/26/22 Unknown Rx Allergies Allergy/AdvReac Type Severity Reaction Status Date / Time risperidone [From Risperdal] Allergy Unknown Verified 04/26/22 09:36 ED Review of Systems ROS: Stated complaint: ABD PAIN Other details as noted in HPI Constitutional: denies: chills, fever Eyes: denies: eye pain, eye discharge, vision change ENT: denies: ear pain, throat pain Respiratory: denies: cough, shortness of breath, wheezing Cardiovascular: denies: chest pain, palpitations Endocrine: no symptoms reported Gastrointestinal: nausea. denies: abdominal pain, vomiting, diarrhea Genitourinary: denies: urgency, dysuria, discharge Musculoskeletal: back pain (Low back pain), myalgia. denies: joint swelling, arthralgia Skin: denies: rash, lesions Neurological: denies: headache, weakness, paresthesias Psychiatric: denies: anxiety, depression Hematological/Lymphatic: denies: easy bleeding, easy bruising ED Past Medical Hx - Past Medical History Previous Medical History?: Yes Hx Psychiatric Treatment: Yes (ADHD, PTSD, bipolar disorder) Hx Asthma: Yes Additional medical history: Bipolar, ADD, PTSD. Chronic Right Knee pain - Social History Smoking Status: Current Every Day Smoker Substance Use Type: None - Medications Home Medications: Home Medications Medication Instructions Recorded Confirmed Last Taken Type Leg Brace [Knee Brace] 1 each ONCE #1 each 03/24/22 Unknown Rx Doxylamine Succinate/Vit B6 1 each PO QHS PRN #30 tablet. 04/14/22 Unknown Rx [Rita Adamson 10-10 mg Tablet] Jane Root [Jane] 250 mg PO QID PRN #30 capsule 04/14/22 Unknown Rx Acetaminophen [Non-Aspirin Extra 500 mg PO Q6HR PRN #30 tablet 04/26/22 Unknown Rx Strength] Vit-Fe Fumar-FA [ 1 tab PO QDAY #60 tablet 04/26/22 Unknown Rx Vitamin] Promethazine [Phenergan] 25 mg PO Q8HR PRN #30 tab 04/26/22 Unknown Rx cephALEXin [Keflex] 500 mg PO Q6HR #40 capsule 04/26/22 Unknown Rx ED Physical Exam - General Limitations: No Limitations General appearance: alert, in no apparent distress - Head Head exam: Present: atraumatic, normocephalic, normal inspection - Eye Eye exam: Present: normal appearance, PERRL, EOMI Pupils: Present: normal accommodation - ENT ENT exam: Present: normal exam, normal orophraynx, mucous membranes moist, TM's normal bilaterally, normal external ear exam - Neck Neck exam: Present: normal inspection, full ROM. Absent: tenderness - Respiratory Respiratory exam: Present: normal lung sounds bilaterally. Absent: respiratory distress, wheezes, rales, rhonchi, chest wall tenderness, decreased breath sounds, prolonged expiratory, other - Cardiovascular Cardiovascular Exam: Present: regular rate, normal rhythm, normal heart sounds. Absent: systolic murmur, diastolic murmur, rubs, gallop - GI/Abdominal GI/Abdominal exam: Present: soft, normal bowel sounds. Absent: tenderness, guarding, rebound, hyperactive bowel sounds, hypoactive bowel sounds - Extremities Exam Extremities exam: Present: normal inspection, full ROM, normal capillary refill. Absent: tenderness, pedal edema, joint swelling, calf tenderness - Back Exam Back exam: Present: normal inspection, full ROM. Absent: tenderness, CVA tenderness (R), CVA tenderness (L), muscle spasm, paraspinal tenderness, vertebral tenderness - Neurological Exam Neurological exam: Present: alert, oriented X3, CN II-XII intact, normal gait, reflexes normal - Psychiatric Psychiatric exam: Present: normal affect, normal mood, anxious - Skin Skin exam: Present: warm, dry, intact, normal color. Absent: rash ED Course Vital Signs 04/26/22 09:34 Temperature 98.5 F Pulse Rate 88 Respiratory 14 Rate Blood Pressure 150/78 [Right] O2 Sat by Pulse 95 Oximetry ED Medical Decision Making - Lab Data Result diagrams: 04/26/22 12:29 04/26/22 12:29 - Medical Decision Making This is a A0 21-year-old -[place] female who is approximately 7 weeks gestation and who has past medical history of ADHD, PTSD, asthma and bipolar disorder who presents to the ED with complaint of acute onset persistent generalized weakness, low back pain, and persistent nausea for the last 1 week, worse in the last 3 days. Patient states that she has not been able to eat anything in the last 24 hours because of persistent nausea. In the ED, patient is alert and oriented x3 and is not in any distress. All lab test results were reviewed and are all nonactionable except for significant urinary tract infection in urinalysis. Patient received antiemetics, normal saline 1 L IV bolus x1, Rocephin 1 g IV x1 and antacids. On reevaluation, patient felt better and was discharged home on medications including antibiotics and antiemetics as well as vitamins. Patient was advised to follow-up with [facility] physician in 7 to 10 days for reevaluation or return to the ED immediately if symptoms get worse. - Differential Diagnosis Dehydration; UTI; ; viral syndrome Critical care attestation.: If time is entered above; I have spent that time in minutes in the direct care of this critically ill patient, excluding procedure time. ED Disposition Clinical Impression: Nausea and vomiting during , Acute urinary tract infection Disposition: HOME / SELF CARE / HOMELESS Is pt being admited?: No Does the pt Need Aspirin: No Condition: Stable Instructions: Abdominal Pain (ED), Morning Sickness, [id number], Nausea and Vomiting, Adult, [id number], and Urinary Tract Infection, Urinary Tract Infection, Adult, [id number] Additional Instructions: Take medication with food, drink plenty of fluids, follow-up with your primary care physician or [facility] physician in 7 to 10 days for reevaluation. Return to the ED immediately if symptoms get worse Prescriptions: cephALEXin [Keflex] 500 mg PO Q6HR #40 capsule Acetaminophen [Non-Aspirin Extra Strength] 500 mg PO Q6HR PRN #30 tablet PRN Reason: Pain , Severe (7-10) Promethazine [Phenergan] 25 mg PO Q8HR PRN #30 tab PRN Reason: Nausea Vit-Fe Fumar-FA [ Vitamin] 1 tab PO QDAY #60 tablet Referrals: [facility] [Provider Group] - 7-10 days Time of Disposition: 16:39 Print Language: BULGARIAN
[2022-04-26 17:35] VITALS: BP 142/80
== END 2022-04-26 17:35 | disposition home or self-care (01) ==
LOC: ED 09:31
DX: O21.9 Vomiting of pregnancy, unspecified (principal); O23.91 Unspecified genitourinary tract infection in pregnancy, first trimester; Z3A.01 Less than 8 weeks gestation of pregnancy
CPT/HCPCS: 36415; 80053; 81001; 83690; 84702; 84703; 85025; 87086; 96365; 96375; 99284; J0696; J1200; J2765; J3490; J7030